=== PATIENT | female | born 1975 | race Asian ===

== ENCOUNTER 2019-05-22 06:59 | Inpatient (IN) | payer OTHER ==
[2019-05-22] VITALS (29 sets, daily range): BP systolic 118–158; BP diastolic 50–85
[~2019-05-22] VITALS: Ht 162.6 cm; Wt 103.9 kg
[2019-05-22] MEDS ORDERED: DOPamine 1600MCG/ML D5W 250 ML IV SCH (07:26)
[2019-05-22] MEDS ORDERED: DOPamine 1600MCG/ML D5W 250 ML IV ONE (07:28)
[2019-05-22 07:42] LABS: Basophils # (auto) 0.1 uL; Basophils % (auto) 0.8 % (0.0-2.0); Eosinophils # (auto) 0.2 uL; Eosinophils % (auto) 1.6 % (0.0-7.0); Hematocrit 45.3 % (36.0-46.0); Hemoglobin 14.7 g/dL (12.2-16.2); Lymphocytes # (auto) 2.7 uL; Mean Corpuscular Hgb Conc. 32.6 g/dL (32.0-36.0); Monocytes # (auto) 0.6 uL; Monocytes % (auto) 4.5 % (0.0-12.0); Neutrophils # (auto) 10.6 uL; Neutrophils % (auto) 74.1 % (37.0-80.0); Platelet Count (auto) 444 10^3/uL (140-450); Red Blood Cells 5.08 10^6/uL (4.0-5.20); Red Cell Distribution Width 14.5 % (11.8-14.3); White Blood Cell 14.3 10^3/uL (4.4-10.8)
[2019-05-22] MEDS ORDERED: ONDANSETRON HCL 4 MG/2 ML VIAL ONE (08:17)
[2019-05-22] MEDS ORDERED: DILT120T8 PO (08:20)
[2019-05-22] MEDS ORDERED: METF-370 PO (08:20)
[2019-05-22] MEDS ORDERED: SPIR25TA8 PO (08:20)
[2019-05-22] MEDS ORDERED: LISI-646 PO (08:20)
[2019-05-22] MEDS ORDERED: ONDANSETRON HCL 4 MG/2 ML VIAL IV ONE (08:30)
[2019-05-22] MEDS ORDERED: ALBUTEROL SULF 2.5 MG/0.5ML(0.5%) NEB SOLN NEB STA (08:34)
[2019-05-22] MEDS ORDERED: InsuLIN REG 1unit/0.01ml Soln (100units/ml) ONE (08:39)
[2019-05-22] MEDS ORDERED: CALCIUM GLUC 4.65meq/50ml D5AE 50 ML IV ONE (08:45)
[2019-05-22] MEDS ORDERED: DEXTROSE (50%) 50ML SYRG IV ONE (08:45)
[2019-05-22] MEDS ORDERED: SODIUM BICARBONATE 8.4% INJ 50ML SYRINGE IV ONE (08:45)
[2019-05-22] MEDS ORDERED: SODIUM ZIRCONIUM CYCL 10 GM PAK PO ONE (08:45)
[2019-05-22] MEDS ORDERED: InsuLIN REG 1unit/0.01ml Soln (100units/ml) IV ONE (08:45)
[2019-05-22 09:09] LABS: INR < 0.93 (0.9-1.15); Partial Thromboplastin Time 26.4 sec (23.64-32.05)
[2019-05-22 09:34] LABS: Albumin 3.7 g/dL (3.4-5.0); Calcium 9.5 mg/dL (8.5-10.1)
[2019-05-22 09:41] LABS: BUN/Creatinine Ratio 12.7; Bilirubin, Total 0.4 mg/dL (0.2-1.0); Total Protein 9.8 g/dL (6.4-8.2)
[2019-05-22 09:54] LABS: Potassium 7.1 mmol/L (3.5-5.1)
[2019-05-22 10:22] LABS: Urine WBC None Seen /hpf (0 - 5)
[2019-05-22] MEDS ORDERED: ACETAMINOPHEN 500 MG TAB PO PRN (10:30)
[2019-05-22] MEDS ORDERED: MORPHINE SULF INJ 2 MG/ML SYRINGE 1ML IV PRN (10:30)
[2019-05-22] MEDS ORDERED: DEXTROSE (50%) 50ML SYRG IV PRN (10:30)
[2019-05-22] MEDS ORDERED: traMADol HCL 50 MG TAB PO PRN (10:30)
[2019-05-22] MEDS ORDERED: PROMETHAZINE HCL 25 MG/ML 1ML IV PRN (10:30)
[2019-05-22] MEDS ORDERED: NITROGLYCERIN 0.4 MG SL TAB SL PRN (10:30)
[2019-05-22] MEDS ORDERED: TEMAZEPAM 15 MG CAP PO PRN (10:30)
[2019-05-22] MEDS ORDERED: LACTULOSE 20Gm/30ML SOLN PO PRN (10:30)
[2019-05-22] MEDS: FUROSEMIDE 40 MG/4 ML VIAL IV SCH ×2 (10:40→22:21)
[2019-05-22] MEDS ORDERED: ASPirin 81 mg TAB PO ONE (10:45)
[2019-05-22] MEDS ORDERED: FUROSEMIDE 40 MG/4 ML VIAL IV ONE (10:45)
[2019-05-22] MEDS ORDERED: ENOXAPARIN SOD 40 MG/0.4 ML SYRINGE SC ONE (10:45)
[2019-05-22 10:48] LABS: Urine Amorphous Crystal FEW /hpf (None Seen); Urine Bacteria FEW /hpf (None Seen); Urine Blood 2+ /uL (Negative); Urine Hyaline Cast FEW /lpf (0 - 2); Urine Mucus FEW (None Seen); Urine Specific Gravity 1.016 (1.001-1.035)
--- NOTE | 2019-05-22 11:00 | NUR ---
Pt being admitted to ICU MEENU ZHENG admitted to ICU via gurney on hospital monitor, and portable 02 @4l per NC. Patient transfered to bed, connected to ICU monitoring and oxygen, and weighed by bedscale. Patient oriented to Joselyn Rogers primary RN, unit, room, bed, and unit policies regarding patient care and visiting hours. All questions and concerns addressed, patient verbalized understanding. NOTE: Patient denies SOB, chest pain or palpitations. monitoring engineer shows NSR 86. Gross draining clear yellow urine. See spread sheet for assessment. Special Tax Auditor instructed patient not to get OOB per self - patient verbalizes understanding.
[2019-05-22 11:01] LABS: Alcohol, Urine < 3.0 mg/dL (0-5); Amphetamine Screen, Urine NEGATIVE (NEGATIVE); Barbiturate Scree,Urine NEGATIVE (NEGATIVE); Benzodiazephine Screen, Urine NEGATIVE (NEGATIVE); Cannabinoid Screen, Urine NEGATIVE (NEGATIVE); Cocaine Screen, Urine NEGATIVE (NEGATIVE); Opiate Scree,Urine NEGATIVE (NEGATIVE); Phencyclidine Screen, Urine NEGATIVE (NEGATIVE)
[2019-05-22] MEDS: ACCU-CHEK COMFORT CURVE STRIP VI SCH ×3 (11:42→20:40)
[2019-05-22] MEDS: InsuLIN REG 1unit/0.01ml Soln (100units/ml) SC SCH ×3 (11:42→20:47)
[2019-05-22] MEDS: SODIUM CHLOR 0.9% PF (SALINE LOCK) 10ML VIAL/SYR IV SCH ×2 (11:43→22:21)
[2019-05-22] MEDS ORDERED: FURO20TA3 PO (12:25)
[2019-05-22] MEDS ORDERED: CARV25TA55 PO (12:25)
[2019-05-22] MEDS ORDERED: GLIP-116 PO (12:25)
[2019-05-22] MEDS ORDERED: ROSU20TA14 PO (12:25)
--- NOTE | 2019-05-22 14:00 | NUR ---
visits et examines patient - no new orders received.
[2019-05-22] MEDS ORDERED: OPTISON 3ml Vial for INJ IV ONE (14:18)
[2019-05-22] MEDS: PANTOPRAZOLE 40 MG TAB PO SCH (14:28)
--- NOTE | 2019-05-22 14:30 | NUR ---
visits et examines patient - no new orders received.
--- NOTE | 2019-05-22 16:30 | NUR ---
Patient noted to have 15 sec periods of sleep apnea - patient's states she was scheduled for sleep study appt in the near future - patient states is often tired during the day.
[2019-05-23] VITALS (7 sets, daily range): BP systolic 144–165; BP diastolic 68–94
--- NOTE | 2019-05-23 00:10 | NUR ---
REPORT IS GIVEN TO ELISE PANDYA.
[2019-05-23] MEDS: InsuLIN REG 1unit/0.01ml Soln (100units/ml) SC SCH ×7 (00:25→23:18)
[2019-05-23] MEDS: ACCU-CHEK COMFORT CURVE STRIP VI SCH ×7 (00:25→23:17)
--- NOTE | 2019-05-23 01:05 | NUR ---
ICU pt transferred to tele floor MEENU ZHENG transferred to 216 a via bed on panel instrument repairer and portable 02 by Mati PANDYA. All patient medications and personal belongings {phone, clothes} transferred with patient to receiving floor. Patient care transferred to Coleen PANDYA.
--- NOTE | 2019-05-23 01:07 | NUR ---
PT ADMITTED TO ROOM 216A;WILL CONTINUE TO MONITOR.
[2019-05-23 06:42] LABS: Basophils # (auto) 0.1 uL; Basophils % (auto) 0.9 % (0.0-2.0); Eosinophils # (auto) 0.2 uL; Eosinophils % (auto) 1.5 % (0.0-7.0); Hematocrit 42.1 % (36.0-46.0); Hemoglobin 13.9 g/dL (12.2-16.2); Lymphocytes # (auto) 2.3 uL; Lymphocytes % (auto) 17.3 % (10.0-50.0); Mean Corpuscular Hemoglobin 29.2 pg (28.0-32.0); Mean Corpuscular Hgb Conc. 33.1 g/dL (32.0-36.0); Mean Corpuscular Volume 88.2 fL (80.0-100.0); Monocytes # (auto) 0.8 uL; Neutrophils # (auto) 10.1 uL; Neutrophils % (auto) 74.3 % (37.0-80.0); Nucleated Red Blood Cells % 0.1 %; Platelet Count (auto) 388 10^3/uL (140-450); Red Blood Cells 4.77 10^6/uL (4.0-5.20); Red Cell Distribution Width 14.5 % (11.8-14.3); White Blood Cell 13.6 10^3/uL (4.4-10.8)
[2019-05-23] MEDS: SODIUM CHLOR 0.9% PF (SALINE LOCK) 10ML VIAL/SYR IV SCH ×3 (06:47→21:27)
[2019-05-23 06:53] LABS: Albumin 2.9 g/dL (3.4-5.0); Calcium 8.9 mg/dL (8.5-10.1); Potassium 4.2 mmol/L (3.5-5.1)
[2019-05-23 06:58] LABS: BUN/Creatinine Ratio 15.3; Bilirubin, Total 0.4 mg/dL (0.2-1.0); Total Protein 8.1 g/dL (6.4-8.2)
--- NOTE | 2019-05-23 08:30 | NUR ---
Assumed care of patient SBAR received from enriqueta Santoyo RN. Patient resting in bed with even and unlabored respirations, no distress noted. Instructed patient on POC, fall precautions and to call for assistance as needed. Patient verbalized understanding. Fall precautions in place with bed in lowest locked position with call light within reach. Will continue to monitor q1hr & PRN.
[2019-05-23] MEDS: PANTOPRAZOLE 40 MG TAB PO SCH (09:26)
[2019-05-23] MEDS: ENOXAPARIN SOD 40 MG/0.4 ML SYRINGE SC SCH (09:26)
[2019-05-23] MEDS: ASPirin 81 mg TAB PO SCH (09:26)
[2019-05-23] MEDS: FUROSEMIDE 40 MG/4 ML VIAL IV SCH ×2 (09:28→21:27)
[2019-05-23] MEDS ORDERED: amLODIPine BESYLATE 5 MG TAB PO ONE (10:45)
[2019-05-23] MEDS ORDERED: cefTRIAXone 1GM/50ML D5W 50 ML IV ONE (10:45)
[2019-05-23] MEDS: ISOSORBIDE DINITRATE 10 MG TAB PO SCH ×2 (12:10→17:31)
--- NOTE | 2019-05-23 12:15 | NUR ---
Patient refused medication Patient refused ordered medication, Norvasc. Patient stated "It makes my legs swell." Medication wasted in medication pyxis.
--- NOTE | 2019-05-23 15:07 | NUR ---
CALDERON CATHETER DC'D Order to discontinue calderon catheter. Calderon dc'd with clean technique following deflation of the balloon. Patient tolerated well with no complaints of pain. Will continue to monitor. Signed: 05/23/19 at 1516 by SN KLARISSA <Co-Signature Required> Co-Signed: 05/23/19 at 1516 by Anna Marie Kirkpatrick RN
--- NOTE | 2019-05-23 15:24 | NUR ---
Urine specimen collected and sent to lab per MD's order.
--- NOTE | 2019-05-23 17:34 | NUR ---
Pulse ox 90% on RA Respirations even and unlabored, no distress noted.
--- NOTE | 2019-05-23 18:54 | NUR ---
Closing note patient resting in bed with even and unlabored respirations, no distress noted. Fall precautions in place with call light within reach.
--- NOTE | 2019-05-23 19:30 | NUR ---
Care endorsed to YA Ricci.
--- NOTE | 2019-05-23 20:00 | NUR ---
Opening Shift Note Assumed care of patient, awake and alert. No S/S of distress/SOB or pain. Instructed on POC and to call for assist PRN, will continue to monitor for changes Q1hr and PRN.
[2019-05-24] MEDS: InsuLIN REG 1unit/0.01ml Soln (100units/ml) SC SCH ×6 (03:50→23:55)
[2019-05-24] MEDS: ACCU-CHEK COMFORT CURVE STRIP VI SCH ×6 (03:50→23:54)
[2019-05-24 04:55] VITALS: BP 144/81
[2019-05-24] MEDS: ISOSORBIDE DINITRATE 10 MG TAB PO SCH ×3 (05:41→17:29)
[2019-05-24] MEDS: SODIUM CHLOR 0.9% PF (SALINE LOCK) 10ML VIAL/SYR IV SCH ×3 (05:42→21:31)
--- NOTE | 2019-05-24 06:13 | NUR ---
Total output is the first column of the intake and output, intake of 200, void of 2 x.1 b.m.
--- NOTE | 2019-05-24 07:07 | NUR ---
Report given to Barrett Thrasher assume the care, patient is resting no distress.
[2019-05-24 07:44] LABS: Basophils # (auto) 0.2 uL; Basophils % (auto) 1.4 % (0.0-2.0); Eosinophils # (auto) 0.2 uL; Eosinophils % (auto) 2.1 % (0.0-7.0); Hematocrit 45.7 % (36.0-46.0); Hemoglobin 15.5 g/dL (12.2-16.2); Lymphocytes # (auto) 2.8 uL; Lymphocytes % (auto) 24.5 % (10.0-50.0); Mean Corpuscular Hemoglobin 29.6 pg (28.0-32.0); Mean Corpuscular Volume 87.2 fL (80.0-100.0); Monocytes # (auto) 0.8 uL; Monocytes % (auto) 7.1 % (0.0-12.0); Neutrophils # (auto) 7.4 uL; Neutrophils % (auto) 64.9 % (37.0-80.0); Nucleated Red Blood Cells % 0.1 %; Platelet Count (auto) 402 10^3/uL (140-450); Red Blood Cells 5.24 10^6/uL (4.0-5.20); Red Cell Distribution Width 14.4 % (11.8-14.3); White Blood Cell 11.3 10^3/uL (4.4-10.8)
--- NOTE | 2019-05-24 08:00 | NUR ---
Morning note Patient resting in bed with even and unlabored respirations, no distress noted. Instructed patient on POC, fall precautions and to call for assistance as needed. Patient verbalized understanding. Fall precautions in place with bed in lowest locked position with call light within reach. Will continue to monitor q1hr & PRN.
[2019-05-24 08:01] LABS: Alanine Aminotransferase 18 U/L (13-56); Albumin 2.9 g/dL (3.4-5.0); Anion Gap 10 (5-15); Aspartate Aminotransferase 10 U/L (15-37); Blood Urea Nitrogen 27 mg/dL (7-18); Calcium 8.9 mg/dL (8.5-10.1); Carbon Dioxide 28 mmol/L (21-32); Chloride 100 mmol/L (98-107); GFR African American 49 mL/min; GFR Non-African American 40 mL/min; Glucose 280 mg/dL (74-106); Sodium 138 mmol/L (136-145)
[2019-05-24 08:04] LABS: Alkaline Phosphatase 79 U/L (45-117); Bilirubin, Total 0.3 mg/dL (0.2-1.0); Total Protein 8.7 g/dL (6.4-8.2)
[2019-05-24 09:00] VITALS: BP 161/91
[2019-05-24] MEDS: ASPirin 81 mg TAB PO SCH (09:35)
[2019-05-24] MEDS: FUROSEMIDE 40 MG/4 ML VIAL IV SCH ×2 (09:35→21:30)
[2019-05-24] MEDS: ENOXAPARIN SOD 40 MG/0.4 ML SYRINGE SC SCH (09:35)
[2019-05-24] MEDS: PANTOPRAZOLE 40 MG TAB PO SCH (09:35)
[2019-05-24] MEDS: cefTRIAXone 1GM/50ML D5W 50 ML IV SCH (09:36)
[2019-05-24] MEDS ORDERED: amLODIPine BESYLATE 5 MG TAB PO SCH (10:00)
[2019-05-24] MEDS ORDERED: amLODIPine BESYLATE 5 MG TAB PO ONE (10:30)
--- NOTE | 2019-05-24 10:49 | NUR ---
Patient refused medication - notified MD Patient refused ordered Norvasc. Patient stated "I can't take it. It makes my legs swell." Paged Dr. Cooley. MD returned page. Updated Dr. Cooley that patient is refusing medication. verbalized understanding.
[2019-05-24] MEDS ORDERED: NIFEdipine ER 30 MG TAB PO ONE (11:00)
--- NOTE | 2019-05-24 11:38 | NUR ---
was at bedside - Dr. Cooley POC discussed with the patient, the patient's spouse at bedside and this RN. to speak with Dr. Harp RE: GAUDENCIO.
[2019-05-24] MEDS: NIFEdipine ER 30 MG TAB PO SCH (11:43)
[2019-05-24 13:00] VITALS: BP 159/90
[2019-05-24 13:49] VITALS: BP 150/90
[2019-05-24] MEDS: SODIUM CHLORIDE 0.9% 1,000 ML IV SCH (14:18)
[2019-05-24 17:00] VITALS: BP 147/76
--- NOTE | 2019-05-24 17:48 | NUR ---
RE: orders Notified Dr. Cooley of patients increasing blood glucose level. MD verbalized understanding. Orders received and read back to verify.
[2019-05-24] MEDS ORDERED: INSULIN LANTUS (GLARGINE) 1 /0.01ml (100units/ml) SC ONE (18:00)
--- NOTE | 2019-05-24 18:23 | NUR ---
Ordered medication administered per MD's order Educated patient on medication and s/s of hypoglycemia. Patient verbalized understanding. Instructed patient to notify staff immediately if change in status occurs. Patient verbalized understanding. Call light within reach.
--- NOTE | 2019-05-24 18:39 | NUR ---
Closing note patient resting in bed with even and unlabored respirations, no distress noted. Fall precautions in place with call light within reach.
--- NOTE | 2019-05-24 19:21 | NUR ---
Care endorsed to YA Ricci.
--- NOTE | 2019-05-24 20:00 | NUR ---
Patient did not sign the consent due to patient said that the doctor did not tell her about this procedure.
--- NOTE | 2019-05-24 20:00 | NUR ---
Opening Shift Note Assumed care of patient, awake and alert. No S/S of distress/SOB or pain. Instructed on POC and to call for assist PRN, will continue to monitor for changes Q1hr and PRN.Advised no food or drink after midnight.
[2019-05-24 21:30] VITALS: BP 127/42
[2019-05-25] MEDS: SODIUM CHLORIDE 0.9% 1,000 ML IV SCH ×2 (01:16→16:10)
--- NOTE | 2019-05-25 01:30 | NUR ---
Patient still awake, patient said she is nervous and told that her grandmother of this kind of procedure.
[2019-05-25] MEDS: InsuLIN REG 1unit/0.01ml Soln (100units/ml) SC SCH ×5 (03:50→20:34)
[2019-05-25] MEDS: ACCU-CHEK COMFORT CURVE STRIP VI SCH ×5 (04:28→20:31)
[2019-05-25 05:01] VITALS: BP 146/70
[2019-05-25] MEDS: ISOSORBIDE DINITRATE 10 MG TAB PO SCH ×3 (05:49→18:13)
[2019-05-25] MEDS: SODIUM CHLOR 0.9% PF (SALINE LOCK) 10ML VIAL/SYR IV SCH ×3 (05:51→22:12)
[2019-05-25 06:40] LABS: Potassium 3.9 mmol/L (3.5-5.1)
[2019-05-25 06:46] LABS: Albumin 3.1 g/dL (3.4-5.0); Bilirubin, Total 0.3 mg/dL (0.2-1.0); Total Protein 8.9 g/dL (6.4-8.2)
--- NOTE | 2019-05-25 06:47 | NUR ---
Patient verbalized that she want to refuse the left heart cath. today.
--- NOTE | 2019-05-25 07:11 | NUR ---
Report given to Barrett Thrasher , patient is resting no distress, NPO maintained.
[2019-05-25] MEDS ORDERED: LIDOCAINE 2%HCL (LOCAL ANESTH.) INJ 20ML MDV ONE (07:25)
--- NOTE | 2019-05-25 08:00 | NUR ---
Morning note patient resting in bed with even and unlabored respirations, no distress noted. Instructed patient on POC, fall precautions and to call for assistance. Patient verbalized understanding. Fall precautions in place with call light within reach. Patient NPO. Patient requesting to speak with director [place] prior to signing consents. Evonne cath lab technologist RN, notified. Will continue to monitor q1hr & PRN.
[2019-05-25] MEDS: cefTRIAXone 1GM/50ML D5W 50 ML IV SCH (08:20)
--- NOTE | 2019-05-25 08:40 | NUR ---
Patient transferred to laborer ammunition assembly via hospital bed. Respirations even and unlabored, no distress noted. IV patent. Consents not signed. Patient requesting to speak with MD. Douglass, laborer ammunition assembly RN, aware.
[2019-05-25] MEDS ORDERED: LORazepam 2MG/ML-1ML VIAL IV ONE (08:45)
[2019-05-25] MEDS ORDERED: LORazepam 2MG/ML-1ML VIAL ONE (08:58)
[2019-05-25 09:00] VITALS: BP 137/68
--- NOTE | 2019-05-25 09:21 | NUR ---
I faxed clinical information to [facility] including ER notes, H&P, consultations, xrays, vitals, labs, MD progress notes and medication list.
[2019-05-25] MEDS ORDERED: ANGIOMAX 250 MG VIAL IV ONE (09:49)
[2019-05-25] MEDS ORDERED: fentaNYL CITRATE 100 MCG/2 ML VL ONE (09:49)
[2019-05-25] MEDS ORDERED: MIDAZOLAM HCL 1MG/1ML-2 ML VIAL ONE (09:49)
[2019-05-25] MEDS ORDERED: IODIXANOL 320MG/ML 100ML BTL IV ONE ×2 (09:50→10:42)
[2019-05-25] MEDS ORDERED: SODIUM CHL 0.9% 50 ML ONE (09:50)
[2019-05-25] MEDS ORDERED: VERAPAMIL 2.5MG/ML INJ 2ML VIAL IV ONE (09:52)
[2019-05-25] MEDS: ENOXAPARIN SOD 40 MG/0.4 ML SYRINGE SC SCH (10:00)
[2019-05-25] MEDS ORDERED: NIFEdipine ER 30 MG TAB PO SCH (10:00)
[2019-05-25] MEDS: INSULIN LANTUS (GLARGINE) 1 /0.01ml (100units/ml) SC SCH ×2 (10:00→22:20)
[2019-05-25] MEDS ORDERED: amLODIPine BESYLATE 5 MG TAB PO SCH (10:00)
[2019-05-25] MEDS: ASPirin 81 mg TAB PO SCH (10:00)
--- NOTE | 2019-05-25 10:17 | NUR ---
RE: Scheduled medications Scheduled medications will be administered once patient returns to the unit from scheduled procedure.
[2019-05-25] MEDS ORDERED: ASPirin 325 MG TAB ONE (10:23)
[2019-05-25] MEDS ORDERED: TICAGRELOR 90 MG TAB ONE (10:23)
--- NOTE | 2019-05-25 10:27 | NUR ---
NUTRITION ASSESSMENT NOTES Please refer to link notes of nutrition screen form filed under the intervention section of the plan of care for further details. Est. Needs: 1350 kcal to 1850 kcal (13-18 kcal/kgBW), 55 gms to 66 gms pro (1.0-1.2 gms/kgIBW: 55 kg). Will continue to monitor pertinent labs and reassess nutrient need prn Thank you. Addendum: 05/25/19 at [address] Amended: Links added.
[2019-05-25] MEDS ORDERED: EPTIFIBATIDE INJ (2MG/ML) 10ML VIAL IV ONE (10:54)
--- NOTE | 2019-05-25 11:37 | NUR ---
RE: interventions patient off unit at this time at scheduled procedure. Addendum: 05/25/19 at 1137 by Anna Marie Kirkpatrick RN Amended: Links added.
--- NOTE | 2019-05-25 12:46 | NUR ---
Patient returned to unit Report received from YA Bustos. MEENU ZHENG brought to bed 216A following Cardiac catheterization, on registered nurse cardiac telemetry and portable oxygen. Catheterization site assessed for any bleeding, redness or swelling. Vasc Band device in place. Pulse on affected left arm assessed for positive tissue perfusion. Patient instructed on need to notify staff immediately if any pain, burning or wetness to site, and any lower back pain. All questions and concerns addressed, patient verbalized understanding of all education and instruction.
--- NOTE | 2019-05-25 13:00 | NUR ---
2ml of air removed from Vasc Band No bleeding noted. Patient tolerated well.
--- NOTE | 2019-05-25 13:15 | NUR ---
2ml of air removed from Vasc Band No bleeding noted. Patient tolerated well.
--- NOTE | 2019-05-25 13:30 | NUR ---
2ml of air removed from Vasc Band No bleeding noted. Patient tolerated well.
--- NOTE | 2019-05-25 13:44 | NUR ---
Vasc Band removed No bleeding noted. Instructed patient and patient's spouse at bedside to notify staff immediately if any bleeding is noted. Both parties verbalized understanding. Will continue to monitor q1hr & PRN.
[2019-05-25] MEDS: FUROSEMIDE 40 MG/4 ML VIAL IV SCH ×2 (14:43→22:12)
[2019-05-25] MEDS: NIFEdipine ER 30 MG TAB PO SCH (14:44)
[2019-05-25] MEDS: PANTOPRAZOLE 40 MG TAB PO SCH (14:44)
--- NOTE | 2019-05-25 15:41 | NUR ---
Patient resting in bed Left wrist assessed. No bleeding and/or swelling noted. Patient resting with eyes closed, respirations even and unlabored with no distress noted. Bed alarm on for safety. Call light within reach. Patient's spouse at bedside.
[2019-05-25 16:57] VITALS: BP 131/82
--- NOTE | 2019-05-25 18:31 | NUR ---
Closing note patient resting in bed with even and unlabored respirations, no distress noted. Fall precautions in place with call light within reach. Left radial catheterization site is clean, dry and intact with no bleeding noted.
--- NOTE | 2019-05-25 19:26 | NUR ---
Care endorsed to YA Romero.
--- NOTE | 2019-05-25 19:45 | NUR ---
Opening Shift Note Assumed care of patient, awake and alert, oriented x 4. On room air with even and unlabored respirations, no S/S of distress/SOB or pain. Patient is s/p LHC, catheter site to left radial dressing clean, dry and intact, no s/s of bleeding or hematoma, soft upon palpations, 3+ bilateral radial pulses, even and regular, positive tissue perfusions, brisk capillary refill. IV to right hand intact and patent. Patient turns and ambulates independently. Bed low locked position with side rials up x 2 and call light within reach. Instructed on POC and to call for assist PRN, will continue to monitor for changes Q1hr and PRN.
[2019-05-25] MEDS ORDERED: CLOPIDOGREL 300 MG TAB PO ONE (20:00)
[2019-05-25 22:00] VITALS: BP 126/76
[2019-05-26] MEDS: ACCU-CHEK COMFORT CURVE STRIP VI SCH ×4 (00:12→11:48)
[2019-05-26] MEDS: InsuLIN REG 1unit/0.01ml Soln (100units/ml) SC SCH ×4 (00:12→11:48)
[2019-05-26] MEDS: SODIUM CHLOR 0.9% PF (SALINE LOCK) 10ML VIAL/SYR IV SCH (05:29)
[2019-05-26] MEDS: SODIUM CHLORIDE 0.9% 1,000 ML IV SCH (05:30)
[2019-05-26] MEDS: ISOSORBIDE DINITRATE 10 MG TAB PO SCH ×2 (05:42→11:45)
[2019-05-26 06:23] VITALS: BP 143/75
--- NOTE | 2019-05-26 07:00 | NUR ---
Closing note patient resting in bed with even and unlabored respirations, no distress noted. Left radial catheterization site is clean, dry and intact with no bleeding noted. IV intact and patent. endorsed care to day shift RN.
[2019-05-26] MEDS: cefTRIAXone 1GM/50ML D5W 50 ML IV SCH (08:59)
[2019-05-26 09:00] VITALS: BP 144/75
--- NOTE | 2019-05-26 09:29 | NUR ---
I faxed clinical information to [facility] including MD progress notes, vitals, xrays, labs and medication list.
[2019-05-26] MEDS ORDERED: CLOPIDOGREL BISULFATE 75 MG TAB PO SCH (10:00)
[2019-05-26] MEDS: ENOXAPARIN SOD 40 MG/0.4 ML SYRINGE SC SCH (10:00)
[2019-05-26] MEDS ORDERED: CARVEDILOL 12.5 MG TAB PO ONE (11:15)
[2019-05-26] MEDS ORDERED: traMADol HCL 50 MG TAB PO PRN (11:15)
[2019-05-26] MEDS ORDERED: MORPHINE SULF INJ 2 MG/ML SYRINGE 1ML IV PRN (11:30)
[2019-05-26] MEDS ORDERED: NITR0.4S29 SL (11:32)
[2019-05-26] MEDS ORDERED: CLOP75TA28 PO (11:32)
[2019-05-26] MEDS ORDERED: ASPI81CH43 PO (11:32)
[2019-05-26] MEDS ORDERED: PANT40T PO (11:32)
[2019-05-26] MEDS ORDERED: FURO20TA3 PO (11:39)
[2019-05-26] MEDS: FUROSEMIDE 40 MG/4 ML VIAL IV SCH (11:44)
[2019-05-26] MEDS: PANTOPRAZOLE 40 MG TAB PO SCH (11:46)
[2019-05-26] MEDS: ASPirin 81 mg TAB PO SCH (11:46)
[2019-05-26] MEDS: INSULIN LANTUS (GLARGINE) 1 /0.01ml (100units/ml) SC SCH (11:47)
[2019-05-26] MEDS: NIFEdipine ER 30 MG TAB PO SCH (11:47)
[2019-05-26 13:00] VITALS: BP 117/69
[2019-05-26 13:37] VITALS: BP 149/83
--- NOTE | 2019-05-26 14:45 | NUR ---
PATIENT DISCHARGED PATIENT DISCHARGED HOME VIA WHEELCHAIR AFTER ALL DISCHARGE INSTRUCTIONS GIVEN AND ALL QUESTIONS AND CONCERNS ADDRESSED. PATIENT WAS GIVEN PRESCRIPTIONS UPON DISCHARGE AND INSTRUCTED TO TAKE TO PREFERRED PHARMACY. PATIENT ALSO INSTRUCTED TO CALL FOR FOLLOW UP APPOINTMENT IN 1-2 WEEKS WITH SAVANAH WE ARE UNABLE TO MAKE THIS APPOINTMENT., PATIENT VERBALIZED UNDERSTANDING. IV WAS REMOVED USING CLEAN STERILE TECHNIQUE, CATHETER NOTED TO BE INTACT UPON REMOVAL, PRESSURE DRESSING APPLIED. TELE WAS REMOVED, CLEANED AND RETURNED TO [facility]. PATIENT SHOWED NO S/S OF DISTRESS OR SOB UPON DISCHARGE.
--- NOTE | 2019-05-26 16:13 | NUR ---
OPENING SHIFT NOTE ASSUMED CARE OF PATIENT. PATIENT RESTING COMFORTABLY IN BED WITH EYES CLOSED. PATIENT SHOWS NO S/S OF DISTRESS OR SOB, RESPIRATIONS EVEN AND UNLABORED. BED IN LOWEST LOCKED POSITION, CALL LIGHT WITHIN REACH. CONTINUING TO MONITOR. Addendum: 05/26/19 at 1615 by DARIA ZUNIGA RN TIME [facility], [id number]
== END 2019-05-26 14:45 | disposition home or self-care (01) | DRG 246 ==
LOC: ER 06:59 → TELE 07:00 → ICU WEST 11:08 → TELE-CENTR 05-23 01:17
PROVIDERS: ADMIT Internal Medicine; ATTEND Internal Medicine
PROC: 027035Z Dilation of Coronary Artery, One Artery with Two Drug-eluting Intraluminal Devices, Percutaneous Approach (ICD-10-PCS; principal; 2019-05-25)
PROC: 3E073PZ Introduction of Platelet Inhibitor into Coronary Artery, Percutaneous Approach (ICD-10-PCS; 2019-05-25)
PROC: 4A023N7 Measurement of Cardiac Sampling and Pressure, Left Heart, Percutaneous Approach (ICD-10-PCS; 2019-05-25)
PROC: B2111ZZ Fluoroscopy of Multiple Coronary Arteries using Low Osmolar Contrast (ICD-10-PCS; 2019-05-25)
DX: I21.4 Non-ST elevation (NSTEMI) myocardial infarction (principal); I50.43 Acute on chronic combined systolic (congestive) and diastolic (congestive) heart failure; N17.0 Acute kidney failure with tubular necrosis; R65.11 Systemic inflammatory response syndrome (SIRS) of non-infectious origin with acute organ dysfunction; E44.0 Moderate protein-calorie malnutrition; I13.0 Hypertensive heart and chronic kidney disease with heart failure and stage 1 through stage 4 chronic kidney disease, or unspecified chronic kidney disease; I42.9 Cardiomyopathy, unspecified; E11.21 Type 2 diabetes mellitus with diabetic nephropathy; I70.0 Atherosclerosis of aorta; I08.0 Rheumatic disorders of both mitral and aortic valves; E11.22 Type 2 diabetes mellitus with diabetic chronic kidney disease; E11.65 Type 2 diabetes mellitus with hyperglycemia; E66.01 Morbid (severe) obesity due to excess calories; E78.5 Hyperlipidemia, unspecified; E87.5 Hyperkalemia; I25.10 Atherosclerotic heart disease of native coronary artery without angina pectoris; I49.3 Ventricular premature depolarization; N18.3 Chronic kidney disease, stage 3 (moderate); N25.89 Other disorders resulting from impaired renal tubular function; T46.4X5A Adverse effect of angiotensin-converting-enzyme inhibitors, initial encounter; R94.6 Abnormal results of thyroid function studies; Z68.39 Body mass index [BMI] 39.0-39.9, adult; I25.2 Old myocardial infarction; Z80.3 Family history of malignant neoplasm of breast; Z80.8 Family history of malignant neoplasm of other organs or systems; Z82.49 Family history of ischemic heart disease and other diseases of the circulatory system; Z79.84 Long term (current) use of oral hypoglycemic drugs; Z79.899 Other long term (current) drug therapy
CPT/HCPCS: 36415; 51702; 70450; 71045; 76775; 80053; 80061; 80307; 81001; 82550; 82962; 83036; 83735; 83880; 84132; 84443; 84484; 84702; 85025; 85610; 85652; 85730; 86141; 86850; 86900; 86901; 87081; 87086; 92928; 93005; 93306; 93458; 94644; 94761; 96365; 96366; 96375; 99291; G0378; J0610; J0696; J1815; J2250; J2405; Q9956; Q9967

== ENCOUNTER 2019-07-18 07:05 | Emergency (ER) | payer OTHER ==
[~2019-07-18] VITALS: Ht 160 cm; Wt 105.7 kg
[~2019-07-18 07:05] MED LIST: ASPI81CH43 PO; CARV25TA55 PO; CLOP75TA28 PO; FURO20TA3 PO; GLIP10TA9 PO; NITR0.4S29 SL; PANT40T PO; ROSU20TA14 PO
[2019-07-18 08:25] LABS: Basophils # (auto) 0.1 uL; Eosinophils # (auto) 0.3 uL; Eosinophils % (auto) 2.1 % (0.0-7.0); Hematocrit 38.8 % (36.0-46.0); Hemoglobin 12.9 g/dL (12.2-16.2); Lymphocytes # (auto) 1.8 uL; Lymphocytes % (auto) 13.9 % (10.0-50.0); Mean Corpuscular Hemoglobin 29.9 pg (28.0-32.0); Mean Corpuscular Hgb Conc. 33.2 g/dL (32.0-36.0); Mean Corpuscular Volume 89.8 fL (80.0-100.0); Monocytes # (auto) 0.7 uL; Monocytes % (auto) 5.7 % (0.0-12.0); Neutrophils # (auto) 9.9 uL; Neutrophils % (auto) 77.3 % (37.0-80.0); Nucleated Red Blood Cells % 0.1 %; Platelet Count (auto) 402 10^3/uL (140-450); Red Blood Cells 4.32 10^6/uL (4.0-5.20); Red Cell Distribution Width 14.1 % (11.8-14.3); White Blood Cell 12.9 10^3/uL (4.4-10.8)
[2019-07-18 08:36] LABS: Albumin 2.9 g/dL (3.4-5.0); BUN/Creatinine Ratio 12.8; Calcium 8.3 mg/dL (8.5-10.1)
[2019-07-18 08:40] LABS: Bilirubin, Total 0.2 mg/dL (0.2-1.0)
[2019-07-18] MEDS ORDERED: SODIUM CHLORIDE 0.9% 1,000 ML IVB ONE (09:31)
[2019-07-18] MEDS ORDERED: SODIUM CHLORIDE 0.9% 1,000 ML IV ONE (09:31)
[2019-07-18] MEDS ORDERED: ASPirin 81 mg TAB PO ONE (09:45)
[2019-07-18 10:05] LABS: INR < 0.93 (0.9-1.15); Partial Thromboplastin Time 27.1 sec (23.64-32.05)
[2019-07-18 15:04] LABS: Urine Bacteria FEW /hpf (None Seen); Urine Blood Negative /uL (Negative); Urine Hyaline Cast FEW /lpf (0 - 2); Urine Mucus FEW (None Seen); Urine Specific Gravity 1.016 (1.001-1.035); Urine WBC 79 /hpf (0 - 5)
[2019-07-18] MEDS ORDERED: NITROGLYCERIN 0.4 MG SL TAB SL PRN (15:15)
[2019-07-18] MEDS ORDERED: MORPHINE SULF INJ 2 MG/ML SYRINGE 1ML IV PRN (15:15)
[2019-07-18] MEDS ORDERED: ENOXAPARIN SOD 80 MG/0.8ML SYRINGE SC ONE (16:15)
[2019-07-18 19:29] VITALS: BP 140/71
[2019-07-18] MEDS ORDERED: METOPROLOL TARTRATE 25 MG TAB PO SCH (22:00)
[2019-07-18] MEDS ORDERED: ATORVASTATIN 20 MG TAB PO SCH (22:00)
[2019-07-19] MEDS ORDERED: FUROSEMIDE 20 MG TAB PO SCH (10:00)
[2019-07-19] MEDS ORDERED: ASPirin 81 mg TAB PO SCH (10:00)
[2019-07-19] MEDS ORDERED: CLOPIDOGREL BISULFATE 75 MG TAB PO SCH (10:00)
[2019-07-19] MEDS ORDERED: FAMOTIDINE 20 MG TAB PO SCH (10:00)
== END 2019-07-18 19:39 | disposition short-term general hospital (02) ==
LOC: ER 07:08
DX: I95.9 Hypotension, unspecified (principal); I24.9 Acute ischemic heart disease, unspecified; E13.21 Other specified diabetes mellitus with diabetic nephropathy; R79.1 Abnormal coagulation profile; E46 Unspecified protein-calorie malnutrition; I13.0 Hypertensive heart and chronic kidney disease with heart failure and stage 1 through stage 4 chronic kidney disease, or unspecified chronic kidney disease; N18.3 Chronic kidney disease, stage 3 (moderate); I50.9 Heart failure, unspecified; Z86.73 Personal history of transient ischemic attack (TIA), and cerebral infarction without residual deficits; Z88.8 Allergy status to other drugs, medicaments and biological substances
CPT/HCPCS: 36415; 71046; 80053; 81001; 82962; 83735; 84443; 84484; 85025; 85379; 85610; 85730; 86141; 93005; 94761; 96360; 96361; 99285; J7030

== ENCOUNTER 2022-09-04 09:19 | Emergency (ER) | payer OTHER ==
[~2022-09-04] VITALS: Ht 172.7 cm; Wt 116.9 kg
[2022-09-04] MEDS ORDERED: SODIUM CHLORIDE 0.9% 1,000 ML IVB ONE (09:45)
[2022-09-04 10:18] LABS: Basophils # (auto) 0.1 10 ^3/uL (0-0.2); Basophils % (auto) 1.3 % (0.0-2.0); Eosinophils # (auto) 0.2 10 ^3/uL (0-0.8); Eosinophils % (auto) 1.7 % (0.0-7.0); Hematocrit 42.8 % (36.0-46.0); Hemoglobin 14.4 g/dL (12.2-16.2); Lymphocytes # (auto) 2.5 10 ^3/uL (0.4-5.4); Lymphocytes % (auto) 23.2 % (10.0-50.0); Mean Corpuscular Hemoglobin 28.9 pg (28.0-32.0); Mean Corpuscular Hgb Conc. 33.6 g/dL (32.0-36.0); Mean Corpuscular Volume 86.1 fL (80.0-100.0); Monocytes # (auto) 0.8 10 ^3/uL (0-1.3); Neutrophils # (auto) 7.3 10 ^3/uL (1.6-8.6); Neutrophils % (auto) 66.8 % (37.0-80.0); Nucleated Red Blood Cells % 0.1 %; Red Blood Cells 4.97 10^6/uL (4.0-5.20); Red Cell Distribution Width 14.7 % (11.8-14.3); White Blood Cell 10.9 10^3/uL (4.4-10.8)
[2022-09-04 10:19] LABS: Urine Bacteria NONE SEEN /hpf (None Seen); Urine Blood Negative /uL (Negative); Urine Specific Gravity 1.009 (1.001-1.035); Urine WBC 3 /hpf (0 - 5)
[2022-09-04 10:30] LABS: Albumin 3.3 g/dL (3.4-5.0); Anion Gap 7 (5-15); Blood Urea Nitrogen 22 mg/dL (7-18); Carbon Dioxide 27 mmol/L (21-32); Chloride 101 mmol/L (98-107); Glucose 323 mg/dL (74-106); Potassium 5.2 mmol/L (3.5-5.1); Sodium 135 mmol/L (136-145)
[2022-09-04 10:34] LABS: Amphetamine Screen, Urine NEGATIVE (NEGATIVE); Barbiturate Scree,Urine NEGATIVE (NEGATIVE); Benzodiazephine Screen, Urine NEGATIVE (NEGATIVE); Cannabinoid Screen, Urine NEGATIVE (NEGATIVE); Cocaine Screen, Urine NEGATIVE (NEGATIVE); Opiate Scree,Urine NEGATIVE (NEGATIVE); Phencyclidine Screen, Urine NEGATIVE (NEGATIVE)
[2022-09-04 10:35] LABS: Alanine Aminotransferase 31 U/L (13-56); Alkaline Phosphatase 115 U/L (45-117); Aspartate Aminotransferase 33 U/L (15-37); BUN/Creatinine Ratio 13.4; Bilirubin, Total 0.3 mg/dL (0.2-1.0); Blood Alcohol < 3.0 mg/dL (0-5); GFR African American 43 mL/min; GFR Non-African American 36 mL/min; Total Protein 9.8 g/dL (6.4-8.2)
[2022-09-04] MEDS ORDERED: NITR-87 PO (11:29)
[2022-09-04 13:00] VITALS: BP 150/72
== END 2022-09-04 13:23 | disposition home or self-care (01) ==
LOC: ER 09:19
DX: T50.901A Poisoning by unspecified drugs, medicaments and biological substances, accidental (unintentional), initial encounter (principal); I10 Essential (primary) hypertension; N39.0 Urinary tract infection, site not specified; I11.0 Hypertensive heart disease with heart failure; I50.9 Heart failure, unspecified; E11.9 Type 2 diabetes mellitus without complications; E78.5 Hyperlipidemia, unspecified; Z98.61 Coronary angioplasty status; Z88.8 Allergy status to other drugs, medicaments and biological substances; Y92.89 Other specified places as the place of occurrence of the external cause
CPT/HCPCS: 36415; 71045; 80053; 80307; 80320; 81001; 82962; 85025; 93005

== ENCOUNTER 2023-12-29 07:26 | Emergency (ER) | payer OTHER ==
[~2023-12-29] VITALS: Ht 160 cm; Wt 119.0 kg
[~2023-12-29 07:26] MED LIST changes: +NITR-87 PO
[2023-12-29 08:00] VITALS: PULSE 85; RESP 18; O2SAT 95
[2023-12-29 08:36] LABS: Partial Thromboplastin Time 23.1 SEC (24.5-34.5); Prothrombin Time 10.5 sec (9.3-11.8)
[2023-12-29] MEDS: MORPHINE SULFATE 4 MG/ML SYR/VIAL IV ONE (08:48)
[2023-12-29] MEDS: ONDANSETRON HCL 4 MG/2 ML VIAL IV ONE (08:48)
[2023-12-29 08:49] LABS: Basophils # (auto) 0.1 10 ^3/uL (0-0.2); Eosinophils # (auto) 0.3 10 ^3/uL (0-0.8); Hematocrit 32.5 % (36.0-46.0); Lymphocytes # (auto) 1.5 10 ^3/uL (0.4-5.4); Neutrophils # (auto) 9.3 10 ^3/uL (1.6-8.6)
[2023-12-29 08:51] LABS: Basophils % (auto) 0.8 % (0.0-2.0); Eosinophils % (auto) 2.6 % (0.0-7.0); Hemoglobin 9.8 g/dL (12.2-16.2); Lymphocytes % (auto) 12.7 % (10.0-50.0); Mean Corpuscular Hemoglobin 23.5 pg (28.0-32.0); Mean Corpuscular Hgb Conc. 30.2 g/dL (32.0-36.0); Mean Corpuscular Volume 77.7 fL (80.0-100.0); Monocytes # (auto) 0.5 10 ^3/uL (0-1.3); Monocytes % (auto) 4.6 % (0.0-12.0); Neutrophils % (auto) 79.3 % (37.0-80.0); Red Blood Cells 4.18 10^6/uL (4.0-5.20); White Blood Cell 11.7 10^3/uL (4.4-10.8)
[2023-12-29 09:09] LABS: Anisocytosis Moderate; Hypochromia Slight; Platelet Estimate Adequate
[2023-12-29] MEDS: HYDROcodone-ACET 10/325MG TAB PO ONE (10:30)
[2023-12-29] MEDS ORDERED: AUG875T PO (10:37)
[2023-12-29] MEDS: hydrALAZINE HCL 20 MG/ML VL IV ONE (10:53)
[2023-12-29] MEDS: cefTRIAXone 1GM/50ML D5W 50 ML IV ONE (11:26)
[2023-12-29 11:46] LABS: Urine Bacteria FEW /hpf (None Seen); Urine Blood 2+ /uL (Negative); Urine Clarity HAZY (Clear); Urine Color Yellow (Yellow); Urine Protein, UAD 3+ (Negative); Urine Specific Gravity 1.019 (1.001-1.035); Urine Urobilinogen Normal (Negative); Urine WBC 12 /hpf (0 - 5); Urine pH 6.5 (5.0-8.0)
[2023-12-29 11:59] VITALS: RESP 18
[2023-12-29 12:23] VITALS: BP 165/64; PULSE 85; O2SAT 99
== END 2023-12-29 13:16 | disposition home or self-care (01) ==
LOC: ER 07:26 → EDBD 07:26 → ER 13:16
DX: R04.0 Epistaxis (principal); I11.0 Hypertensive heart disease with heart failure; I50.9 Heart failure, unspecified; E11.9 Type 2 diabetes mellitus without complications; K21.9 Gastro-esophageal reflux disease without esophagitis; E78.5 Hyperlipidemia, unspecified; Z98.890 Other specified postprocedural states; Z88.8 Allergy status to other drugs, medicaments and biological substances; Z79.899 Other long term (current) drug therapy
CPT/HCPCS: 36415; 81001; 82962; 85025; 85610; 85730; 96365; 96375; 99285; J0360; J0696; J2270; J2405